=== PATIENT | female | born 1985 ===

== ENCOUNTER 2021-06-04 10:45 | Outpatient (CLI) | payer OTHER | END 2021-06-04 11:00 | disposition home or self-care (01) | LOC: PPH VACUNA 10:45 | PROVIDERS: ATTEND Emergency Medicine Pediatric Emergency Medicine | DX: Z23 Encounter for immunization (principal) ==

== ENCOUNTER 2022-05-09 09:09 | Outpatient (CLI) | payer OTHER | END 2022-05-09 09:19 | disposition home or self-care (01) | LOC: PPH VACUNA 09:09 | PROVIDERS: ATTEND Emergency Medicine Pediatric Emergency Medicine | DX: Z23 Encounter for immunization (principal) ==